=== PATIENT | female | born 1980 | race Caucasian/White ===

== ENCOUNTER 2018-02-12 20:53 | Emergency (ER) | payer BC ==
--- NOTE | 2018-02-13 07:31 | RAD ---
RIGHT WRIST 3 VIEWS: DATE: 02/12/2018. FINDINGS: No fracture or carpal abnormality is seen. There may be a tiny cyst in the scaphoid of no concern. Distal radius and ulna appear intact. IMPRESSION: No acute finding. POS: HOME
== END 2018-02-12 21:50 | disposition home or self-care (01) ==
LOC: BURERS 20:53
DX: M25.531 Pain in right wrist (principal)
CPT/HCPCS: 29125